=== PATIENT | female | born 1965 | race Caucasian/White ===

== ENCOUNTER 2020-08-03 14:09 | Emergency (ER) | payer OTHER, SELFPAY ==
--- NOTE | 2020-08-03 14:15 | W.ED.GENAD ---
Discharge Plan Disposition Patient Disposition: HOME Condition: Stable Discharge Details Clinical Impression: Abscess, dental Primary Care Provider: Unknown,Unknown ED Provider: Catrachita Harper Home Meds and New Rx's Prescriptions: New clindamycin HCl 300 mg capsule 300 mg PO BID 10 Days Qty: 20 RF: 0 No Action ibuprofen 200 mg Tablet 400 mg PO Q4H PRNRF: 0 Discharge Instructions Instructions: Dental Abscess (ED) Additional Instructions: Follow-up with a dentist as previously scheduled. Take antibiotics as directed. You were given clindamycin IV here in department. Rinse mouth with warm water after eating or drinking and up to 3 times daily. Please take Tylenol or Ibuprofen with food every 4-6 hours as needed for pain and swelling. Return to the ED for any worsening swelling, trouble swallowing, fever, inability to open your mouth or any concerns. You may apply warm and cold compresses to the outside of your cheek. Discharge Data Discharge Date/Time-TO BE ENTERED AT DEPARTURE: 08/03/20 18:08 Medical Decision Making <AUSTIN Muñoz - Last Filed: 08/04/20 08:14> Patient is a pleasant 55-year-old female presenting today with chief complaint of right lower dental pain. She reports the pain began approximately 3 days ago. She does receive routine dental care and states that she was aware of having poor dentition nearly #31 tooth. States the pain has progressively increased and she is now noting more swelling in the face. States the pain radiates into the neck. States that this morning she was having difficulty and swallowing. She denies fevers but does endorse chills. Denies any difficulty breathing and shortness of breath. Denies any pain under the tongue. On exam, patient appears uncomfortable but nontoxic. Hypertensive blood pressure of 182/95. No past medical history, no known history of hypertension. She is uncomfortable and anxious, will recheck after symptomatic management. Patient does have notable swelling along the right side of her lower jaw. No swelling under the tongue. She does have limited mobility of the jaw and is only able to open approximately 2 fingerbreadths. Uvula is midline with no tonsillar swelling appreciated. Swelling does extend towards the mandibular angle. Trachea is midline. Patient is handling secretions Plan to give Tylenol to augment with the patient's anti-inflammatory. Concerned about where abscess may be tracking. Plan for CT soft tissue neck. Will obtain CBC, CMP. Plan for IV acetaminophen, dexamethasone, clindamycin. Discussed this plan with patient who is in agreement. Not see evidence at this time just Raymundo. CBC and CMP without significant abnormality Patient feeling significantly improved after IV acetaminophen. At the end of my shift, care transition to Shikha Choudhury NP with imaging pending. Patient is resting comfortably. <Catrachita Harper - Last Filed: 08/03/20 18:35> Care handed off to me by my colleague AUSTIN Vines pending CT imaging. Please see her initial HPI and physical exam. Patient is a 55-year-old female right lower dental pain and swelling which began approximately 3 days ago. Exam: CT Neck With Contrast Exam date and time: 08/03/2020 3:56 PM Age: 55 years old Clinical indication: Other: R jaw pain /tooth pain TECHNIQUE: COMPARISON: No relevant prior studies available. FINDINGS: Paranasal sinuses: Clear. Nasopharynx: Unremarkable. Dental: There is a right mandibular periapical abscess. Oropharynx: Unremarkable. No significant tonsillar enlargement. Hypopharynx: Unremarkable. Larynx: Unremarkable. Normal epiglottis. Retropharyngeal space: Unremarkable. Submandibular/Parotid glands: Normal. Glands are normal in size. Thyroid: Normal. No enlarged or calcified nodules. Lymph nodes: Unremarkable. No lymphadenopathy. Trachea: Visualized trachea is unremarkable. Lungs: Unremarkable as visualized. Bones/joints: There are degenerative changes of the temporomandibular joints, right worse than left. Soft tissues: There is a subtle fluid attenuation collection likely subperiosteal at the right mandibular level series 3, images 48-45. It measures up to 1.7 by 0.3 by 1.3 cm. There is some subcutaneous edema in the right perimandibular tissues. There is mild asymmetric thickening of the right platysmas muscle. IMPRESSION: Right-sided fluid attenuation collection associated with the perimandibular tissues, probable subperiosteal abscess. There is a right periapical mandibular abscess. There are mild adjacent changes of cellulitis. Thank you for allowing us to participate in the care of your patient. Dictated and Authenticated by: Fidelina Jacobsen MD On patient reevaluation, she states that she feels better after the dexamethasone and clindamycin. She is able to open her jaw more, there is an area of fluctuance just adjacent to teeth 29 and 30 approximately. Discussed injection of anesthetic and I&D of dental abscess. She agrees with procedure and plan of care. I&D of dental abscess performed as noted in procedure note above. Patient tolerated with some pain. Local area anesthetized with 0.25% bupivacaine and 1% lidocaine, anesthesia achieved. 2 incisions made with an 11 blade, bloody return. No significant amount of purulent drainage expressed. We will plan to discharge patient home with strict return instructions and home care. She does have a follow-up appointment with dentist on Wednesday. We will send her home on clindamycin and discussed rinsing mouth out with warm water and applying cold and hot compresses to her outer cheek. Instructed to return if any worsening swelling, trouble swallowing or any difficulty opening her mouth. She verbalizes understanding. HPI <AUSTIN Muñoz - Last Filed: 08/04/20 08:14> General Mode of arrival: ambulatory. Date/Time Provider Initiated Documentation: 08/03/20 14:15. Limitations to Documentation: no limitations. Information obtained by: patient and RN notes reviewed. History of Present Illness 55 year old F presents to the emergency department with the chief complaint of right lower dental pain, described as moderate, with intensity rated at 5. Quality is described as aching, and is localized to the mouth. Patient reports no radiation. Patient started experiencing this day(s) (3) and it has been constant. No relieving factors improve symptom(s), No exacerbating factors reported . Patient notes fever/chills (reports chills); denies chest pain, loss of appetite, nausea/vomiting and shortness of breath. Patient did receive the following treatments prior to arrival, NSAID Related Data Home Medications Medication Instructions Recorded Confirmed clindamycin HCl 300 mg PO BID 10 Days #20 cap 08/03/20 ibuprofen 400 mg PO Q4H PRN 08/03/20 08/03/20 Previous Rx's Medication Instructions Recorded clindamycin HCl 300 mg PO BID 10 Days #20 cap 08/03/20 Allergies Allergy/AdvReac Type Severity Reaction Status Date / Time No Known Allergies Allergy Unverified 08/03/20 14:21 Review of Systems <AUSTIN Muñoz - Last Filed: 08/04/20 08:14> Constitutional Constitutional: Reports as per HPI, Denies chills, Denies fatigue, Denies fever(s), Denies headache(s) and Denies poor appetite Eyes Eyes: Denies change in vision and Denies irritation ENT Ears, Nose, Mouth, and Throat: Reports as per HPI, Reports dental pain, Reports dysphagia (reports discomfort with swallowing starting this AM), Denies dizziness, Denies dry mouth, Denies ear discharge, Denies otalgia, Reports facial pain, Denies headache(s), Denies hoarseness, Denies lip swelling, Denies nasal congestion, Reports odynophagia and Denies sore throat Cardiovascular Cardiovascular: Reports as per HPI and Denies chest pain Respiratory Respiratory: Reports as per HPI and Denies cough Gastrointestinal Gastrointestinal: Reports as per HPI, Reports dysphagia (reports discomfort with swallowing starting this AM), Denies nausea, Reports odynophagia and Denies vomiting Integumentary/Breasts Skin/Breast: Reports as per HPI, Denies erythema, Denies rash and Denies skin pain Neurologic Neurologic: Reports as per HPI, Denies dizziness and Denies headache(s) Endocrine Endocrine: Denies fatigue Allergic/Immunologic Allergic/Immunologic: Denies lip swelling PFSH <AUSTIN Muñoz - Last Filed: 08/04/20 08:14> Social History Smoking risk assessment performed?: No Exam <AUSTIN Muñoz - Last Filed: 08/04/20 08:14> Const General: cooperative, healthy appearing, comfortable, no acute distress, well developed and well groomed Nutritional Appearance: well nourished and overweight Orientation: alert and awake [facility] [place] Head: normal to inspection, normocephalic and atraumatic Ears: hearing grossly normal bilaterally, external ears normal and TM's normal bilaterally General nose exam: external nose normal and nares normal Face and sinus: sinuses nontender Face images: 1. facial swelling. No erythema, warmth, opening. No focal area of swelling or fluctuance Mouth: oral mucosae normal, lip normal, tongue normal, moist mucous membranes, no audible dysphonia, no drooling, normal tongue and restricted motion (only able to open 2 finger breadths) Teeth and gingiva: dentition normal Throat: posterior oropharynx normal, tonsils normal and uvula midline Eyes General: appearance normal, both eyes and all related structures Neck Neck: normal visual inspection, full ROM, no lymphadenopathy, supple and no anterior neck swelling Resp Effort & Inspection: normal respiratory effort, able to speak in complete sentences and no respiratory distress Auscultation: clear to auscultation bilaterally, no rales, no rhonchi and no wheezes Cardio Rate: regular rate Rhythm: regular rhythm Heart Sounds: S1 normal and S2 normal Skin General skin exam: no rashes or lesions noted Trauma: no lacerations or abrasions Neuro General: patient alert and patient awake Cognition: normal cognition Speech: speech normal Gait: normal gait Psych Appearance: grossly normal and well kempt Mental Status: mental status grossly normal Speech and Movement: speech and movement normal <Catrachita Harper - Last Filed: 08/03/20 18:35> Abscess I/D Site: Other (Dental) Side (if applicable): Right Sedation/analgesia: None Local Anesthetic: Lidocaine 1% and Bupivicaine 0.5% Amount of anesthesia used (mL): 0.5 Technique: Incised with #11 Blade Amount of fluid expressed (mL): 5 Irrigation: No Packing used?: None Complications: Pain and Bleeding Sign Out <AUSTIN Muñoz - Last Filed: 08/04/20 08:14> Sign Out Data: Sign Out Comment: Care transition to Shikha Choudhury NP. Patient. Dental pain, concerning for abscess. CT soft tissue neck pending. Will need reevaluation and likely drainage. Patient has received clindamycin, dexamethasone and IV acetaminophen Last updated by Racquel Bermudez PA at 08/03/20 15:45
[2020-08-03 14:18] VITALS: BP 182/95; PULSE 82; RESP 18; TEMP 36.7; O2SAT 97
[2020-08-03] MEDS: Normal Saline Flush 10 ML SYR IVP ×2 (14:30→15:58)
--- NOTE | 2020-08-03 14:30 | DI.CT_ITS ---
Exam(s) CT NECK W EXAM: CT NECK W CLINICAL HISTORY: right lower dental pain. TECHNIQUE: Imaging Protocol: Axial computed tomography images with coronal and sagittal reformatted images were created and reviewed. CONTRAST MATERIAL: Intravenous: Omnipaque 350 Contrast volume:100 mL COMPARISON: No exams were available for comparison FINDINGS: Visualized orbits and orbital soft tissues: Within normal limits. Visualized paranasal sinuses: Within normal limits. Nasopharynx: Within normal limits. Oropharynx: Within normal limits. Hypopharynx: Within normal limits. Larynx: Within normal limits. Retropharyngeal space: Within normal limits. Parotids/submandibular: Within normal limits. Thyroid gland: Within normal limits. Lymphadenopathy: There is scattered lymph nodes seen along the level one to level three all measurin g less than 8 mm in short axis diameter which are physiologic in nature. Trachea: Within normal limits. Lung apices: There is a 2.3 x 1.8 cm enlarged right paratracheal lymph node. Bones: There is a right mandibular periapical abscess. Carotids/Jugular: Within normal limits. Soft tissues: There is a small fluid collection adjacent to the right mandible measuring 1.7 x 0.3 x 1.3 cm. There is adjacent soft tissue edema. There is thickening of the right platysma muscle. IMPRESSION: 1. Right mandibular periapical abscess. Fluid collection adjacent to the right mandible probably rep resenting and subperiosteal abscess with associated cellulitis. 2. Enlarged right paratracheal lymph node. A follow-up CT scan of the chest should be considered for further evaluation. Incidental Findings RADIATION DOSE DELIVERED: 401.33mGy.cm Total DLP 401.33mGy.cm Total DLP DATA REPOSITORY: All CT scans at this facility are submitted to the National Radiology Data Registry (NRDR) Dose Index Registry (DIR) with the [employer] ([employer]). RADIATION OPTIMIZATION: All CT scans at this facility use at least one of these dose optimization te chniques: automated exposure control; mA and/or kV adjustment per patient size (includes targeted exa ms where dose is matched to clinical indication); or iterative reconstruction.
--- NOTE | 2020-08-03 14:32 | NUR.NOTE ---
Nursing Note: Referral to establish care for PCP with routine follow up given to PCP. Drea Dan
[2020-08-03] MEDS: Normal Saline 1,000 ML 1000 ML IV (14:35)
[2020-08-03] MEDS: Dexamethasone 10 MG/ML VIAL IVP (14:40)
[2020-08-03 14:47] LABS: Abs Immature Grans 0.01 10^3/uL (0.0-0.06); Absolute Basophil Count 0.01 10^3/uL (0.0-0.2); Absolute Eosinophil Count 0.03 10^3/uL (0.0-0.7); Absolute Monocyte Count 0.78 10^3/uL (0.1-0.8); Absolute Neutrophil Count 5.89 10^3/uL (1.2-6.7); Basophils % 0.1; Eosinophils % 0.4; HCT 42.4 % (36.0-46.0); HGB 13.8 g/dL (11.2-15.7); Immature Grans % 0.1; MCH 30.6 pg (27.0-33.0); MCHC 32.5 % (32.0-36.0); Monocytes % 10.1; Neutrophils % 76.3; Nucleated RBC 0 %; Platelet Count 276 10^3/uL (130-400); RBC 4.51 10^6/uL (3.93-5.22); RDW 12.6 % (11.7-14.6); RDW-SD 43.7 fL; WBC 7.72 10^3/uL (4.4-10.8)
[2020-08-03] MEDS: CLINDAMYCIN 900 MG/50 ML BAG 100 MG IVPB (14:50)
[2020-08-03 15:02] LABS: ALT 36 U/L (14-59); AST 16 U/L (15-37); Albumin 4.2 g/dL (3.4-5.0); Alkaline Phosphatase 66 U/L (46-116); BUN 12 mg/dL (7-18); Bilirubin, Total 0.8 mg/dL (0.2-1.0); CREATININE 0.8 mg/dL (0.55-1.02); Calcium 9.3 mg/dL (8.5-10.1); Chloride 102 mmol/L (98-107); Glucose 91 mg/dL (74-106); Potassium 3.7 mmol/L (3.5-5.1); Sodium 140 mmol/L (136-145)
[2020-08-03] MEDS: ACETAMINOPHEN 1,000 MG/100 ML BTL 400 MG IVPB (15:05)
[2020-08-03] MEDS: Normal Saline - Diluent 50 ML VIAL IV (15:57)
[2020-08-03] MEDS: Omnipaque 350 MG/ML 100 ML BTL IJ (15:57)
--- NOTE | 2020-08-03 16:18 | DI.VRAD_ITS ---
PROCEDURE INFORMATION: Exam: CT Neck With Contrast Exam date and time: 08/03/2020 3:56 PM Age: 55 years old Clinical indication: Other: R jaw pain /tooth pain TECHNIQUE: Imaging protocol: Computed tomography images of the neck with contrast. Contrast material: OMNIPAQUE 350; Contrast volume: 100 ml; Contrast route: INTRAVENOUS (IV); COMPARISON: No relevant prior studies available. FINDINGS: Paranasal sinuses: Clear. Nasopharynx: Unremarkable. Dental: There is a right mandibular periapical abscess. Oropharynx: Unremarkable. No significant tonsillar enlargement. Hypopharynx: Unremarkable. Larynx: Unremarkable. Normal epiglottis. Retropharyngeal space: Unremarkable. Submandibular/Parotid glands: Normal. Glands are normal in size. Thyroid: Normal. No enlarged or calcified nodules. Lymph nodes: Unremarkable. No lymphadenopathy. Trachea: Visualized trachea is unremarkable. Lungs: Unremarkable as visualized. Bones/joints: There are degenerative changes of the temporomandibular joints, right worse than left. Soft tissues: There is a subtle fluid attenuation collection likely subperiosteal at the right mandibular level series 3, images 48-45. It measures up to 1.7 by 0.3 by 1.3 cm. There is some subcutaneous edema in the right perimandibular tissues. There is mild asymmetric thickening of the right platysmas muscle. IMPRESSION: Right-sided fluid attenuation collection associated with the perimandibular tissues, probable subperiosteal abscess. There is a right periapical mandibular abscess. There are mild adjacent changes of cellulitis. Dictated and Authenticated by: Fidelina Jacobsen MD. Ordering:LINDSEY Clement MD
== END 2020-08-03 18:08 | disposition home or self-care (01) ==
PROVIDERS: Physician Assistant; Emergency Provider Registered Nurse Emergency
DX: K04.7 Periapical abscess without sinus (principal)
CPT/HCPCS: 10060; 70491; 80053; 96361; 96365; 96366; 96368; 96375; 99285; 85025; 99283; J0131; J1100; J3490